=== PATIENT | female | born 1985 | race Caucasian/White ===

== ENCOUNTER 2017-08-22 07:58 | Emergency (ER) | payer MEDICAID ==
--- NOTE | 2017-08-22 08:29 | C.PDOC ---
History Of Present Illness 32 yr old female presents to the ER for evaluation of left knee pain, developed 2 days ago. Patient states she was getting out of car and slightly twisted her knee and it locked. Patient reports the pain is localized and is worse with weight bearing. Patient denies obvious deformity, skin changes, denies weakness , sensory or vascular deficits to Left leg. Ambulate to Ed for evaluation, not in any apparent distress. Time Seen by Provider: 08/22/17 08:08 Chief Complaint (Nursing): Lower Extremity Problem/Injury History Per: Patient History/Exam Limitations: no limitations Onset/Duration Of Symptoms: Days (2 days ago) Current Symptoms Are (Timing): Still Present Past Medical History Reviewed: Historical Data, Nursing Documentation, Vital Signs Vital Signs: Last Vital Signs Temp 97.4 F L 08/22/17 08:03 Pulse 77 08/22/17 08:03 Resp 20 08/22/17 08:03 BP 113/78 08/22/17 08:03 Pulse Ox 97 08/22/17 08:58 - Medical History PMH: Asthma Surgical History: Appendectomy Family History: States: No Known Family Hx - Social History Hx Alcohol Use: No Hx Substance Use: No - Immunization History Hx Tetanus Toxoid Vaccination: No Hx Influenza Vaccination: No Hx Pneumococcal Vaccination: No Review Of Systems Except As Marked, All Systems Reviewed And Found Negative. Musculoskeletal: Positive for: Other ((+) Left knee pain). Negative for: Leg Pain Neurological: Negative for: Weakness, Numbness Physical Exam - Physical Exam Appears: Well, Non-toxic, No Acute Distress Skin: Normal Color, Warm, No Rash, No Ecchymosis Head: Normacephalic Extremity: Normal ROM (Left knee), Tenderness (mild over superior aspect left knee with nos edema. No palpable deformity, FAROM of left knee, no neurovascular deficits.), No Calf Tenderness, Capillary Refill (less than 2sec to left foot), No Deformity, No Swelling Neurological/Psych: Oriented x3, Normal Speech, Normal Motor, Normal Sensation, Normal Reflexes ED Course And Treatment O2 Sat by Pulse Oximetry: 97 (RA) Pulse Ox Interpretation: Normal - Other Rad lEFT KNEE X-Ray: Interpreted by Me, Viewed By Me Interpretation: (-) acute fx or dislocation Progress Note: On re-eval, pt is afebrile, hemodynamicaly stable. Non-toxic. Ambulatory in Ed with stable gait. left knee: exam c/w sprain/strain. no defokrity. FAROM of Left knee, no neurovascular deficits, no skin changes. Imaging review and appears normal. Jones wrap applied to left knee. Pt advised and ref. to f/u with ortho in 2 -3 days for re-eval. return if any new changes. Medical Decision Making Medical Decision Making: PLAN: * X-Ray - Left Knee * Motrin PO Disposition Counseled Patient/Family Regarding: Studies Performed, Diagnosis, Need For Followup, Rx Given - Disposition Referrals: Anderson Treadwell III, MD [Staff Provider] - Disposition: HOME/ ROUTINE Disposition Time: 08:55 Condition: STABLE Additional Instructions: RICE-REST,ICE, COMPRESSION,ELEVATION TAKE MEDICATION PRESCRIBED AVOID PROLONG WALKING FOR 1 WEEK FOLLOW UP WITH ORTHOPEDIST IN 2-3 DAYS FOR RE-EVALUATION IF NO IMPROVEMENT IN PAIN, REQUEST MRI OF LEFT KNEE. RETURN IF ANY NEW CHANGES. 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 - Scribe Statement The provider has reviewed the documentation as recorded by the Scribe Kylee Kelly All medical record entries made by the Scribe were at my direction and personally dictated by me. I have reviewed the chart and agree that the record accurately reflects my personal performance of the history, physical exam, medical decision making, and the department course for this patient. I have also personally directed, reviewed, and agree with the discharge instructions and disposition.
[2017-08-22 09:54] VITALS: BP 121/68; PULSE 75; RESP 18; TEMP 98; O2SAT 96
--- NOTE | 2017-08-22 11:12 | RAD ---
PROCEDURE: Left Knee Radiographs. HISTORY: Pain. COMPARISON: None. FINDINGS: BONES: Normal. No fracture. JOINTS: Normal. No osteoarthritis. JOINT EFFUSION: Questionable trace joint effusion OTHER FINDINGS: None. IMPRESSION: No evidence acute displaced fracture nor dislocation.
== END 2017-08-22 10:22 | disposition home or self-care (01) ==
LOC: C.ER 07:58
DX: S83.92XA Sprain of unspecified site of left knee, initial encounter (principal); X50.1XXA Overexertion from prolonged static or awkward postures, initial encounter; Y92.89 Other specified places as the place of occurrence of the external cause

== ENCOUNTER 2017-09-09 08:34 | Emergency (ER) | payer MEDICAID ==
[2017-09-09 08:50] VITALS: BP 129/85; PULSE 92; RESP 20; TEMP 97.6; O2SAT 96
--- NOTE | 2017-09-09 09:15 | C.PDOC ---
History Of Present Illness 32 y/o female presents to the ED complaining of right ear canal pain. She reports that she does use q-tips. Denies any fever or chills. There has been no drainage or bleeding from the ear. Time Seen by Provider: 09/09/17 09:06 Chief Complaint (Nursing): ENT Problem History Per: Patient History/Exam Limitations: None Onset/Duration Of Symptoms: Days (x 1) Current Symptoms Are (Timing): Still Present Past Medical History Reviewed: Historical Data, Nursing Documentation, Vital Signs Vital Signs: Last Vital Signs Temp 97.6 F 09/09/17 08:46 Pulse 92 H 09/09/17 08:46 Resp 20 09/09/17 08:46 BP 129/85 09/09/17 08:46 Pulse Ox 96 09/09/17 12:57 - Medical History PMH: Asthma Surgical History: Appendectomy Family History: States: Unknown Family Hx - Social History Hx Alcohol Use: No Hx Substance Use: No - Immunization History Hx Tetanus Toxoid Vaccination: No Hx Influenza Vaccination: No Hx Pneumococcal Vaccination: No Review Of Systems Except As Marked, All Systems Reviewed And Found Negative. Constitutional: Negative for: Fever, Chills ENT: Positive for: Ear Pain. Negative for: Ear Discharge Physical Exam - Physical Exam Appears: Well, Non-toxic, No Acute Distress Skin: Normal Color, Warm, Dry Head: Atraumatic, Normacephalic Eye(s): bilateral: Normal Inspection, PERRL, EOMI Ear(s): Left: Normal, Right: Other (Right ear canal has excoriations and erythema, Right TM is normal.) Oral Mucosa: Moist Neck: Normal, Normal ROM, Supple Cardiovascular: Rhythm Regular Respiratory: Normal Breath Sounds, No Accessory Muscle Use Neurological/Psych: Oriented x3, Normal Speech ED Course And Treatment O2 Sat by Pulse Oximetry: 96 (RA) Pulse Ox Interpretation: Normal Medical Decision Making Medical Decision Making: Impression: R otitis externa, q-tipping Patient is medically stable. Will d/c with Cortisporin drops. Follow up with PMD or ENT for further evaluation. Disposition Doctor Will See Patient In The: Office Counseled Patient/Family Regarding: Studies Performed, Diagnosis - Disposition Referrals: Izaiah Jaime MD [Staff Provider] - Louisa Harmon MD [Staff Provider] - Disposition: HOME/ ROUTINE Disposition Time: 09:14 Condition: GOOD Additional Instructions: Cortisporin Otic Solution 3 drops to the R ear 3 x/day for 5 days. Follow-up with Dr. Jaime (ENT) or Dr. Harmon as needed. No more Q-tipping. Prescriptions: Neomycin/Polymyxin/Hydrocort [Cortisporin Otic Soln] 3 drop OD TID #1 bottle Neomycin/Polymyxin/Hydrocortis [Cortisporin Otic Susp] 3 drop TOP TID #1 bottle Instructions: Otitis Externa (ED) Forms: [employer] (Azerbaijani) - Clinical Impression Clinical Impression: Otitis externa - Scribe Statement The provider has reviewed the documentation as recorded by the Scribe (Candi Woo) Scribe Attestation: All medical record entries made by the Scribe were at my direction and personally dictated by me. I have reviewed the chart and agree that the record accurately reflects my personal performance of the history, physical exam, medical decision making, and the department course for this patient. I have also personally directed, reviewed, and agree with the discharge instructions and disposition.
== END 2017-09-09 09:26 | disposition home or self-care (01) ==
LOC: C.ER 08:34
DX: H60.91 Unspecified otitis externa, right ear (principal)